=== PATIENT | male | born 1995 | race Caucasian/White ===

== ENCOUNTER 2020-07-16 13:30 | Outpatient (RCR) | payer OTHER, SELFPAY ==
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
--- NOTE | 2020-07-05 16:31 | PTOPEVAL ---
PHYSICAL THERAPY RE-EVALUATION and UPDATED PLAN OF CARE Thank you for referring George Garay Jr. to [facility] [place].? Prosper has made progress towards goals set, but has not fully met all of the goals. It is recommended that he continue to be seen for physical therapy? 2x/week for 4 weeks. Please review, sign, date and return this plan of care KATINA. I agree with and certify that the following plan of care is medically necessary. Referring Physician Date Admitting Provider: Attending Provider: Michelle Dave MD Referring Provider: Therapy Assessment Status Assessment Status Assessment Status Re-evaluation Evaluation Information Problem Diagnosis closed nondisplaced fx of 3rd, 4th metatarsal delay healing, Achilles tendon Subjective Information Prosper reports level ground and Query Text:As Reported By Patient/ stairs are going okay for him. Family Still having increase in discomfort with uneven ground and ladders are really difficult for him. Scar is feeling better - less pulling present with motion. Pain Assessment Self Report Pain Assessment Left Foot/Feet Reported Pain Level 3 Pain Description Aching,Dull Lowest Pain Intensity 2 Greatest Pain Intensity 5 Lower Extremity Range of Motion Ankle/Foot Range of Motion Left Ankle Dorsiflexion With Knee Extension 6 Range of Motion - Active Ankle Dorsiflexion With Knee Flexed 15 Range of Motion - Active Lower Extremity Muscle Strength Testing Ankle Strength Left Ankle Plantarflexion Strength 4 Good Ankle Strength Comments anterior tibialis 5 posterior tibialis 5 peroneal brevis 5 peroneal longus 5 Single leg stance - 60+ sec - very little ankle motion - with eyes closed - 40 seconds - symmetrical movement between legs to maintain balance mid calf circumference - 39.8 cm Palpation Assessment Palpation Palpation improved scar mobility in area of arch medially - but still reduced motion centrally. Gait Assessment Gait Pattern Assessment Other Gait Observations increased control with L foot at heel strike to mid stance - decreased to no foot slap present Stair Climbing Assessment Stair Climbing Assessment Stair Climbing Assistive Devices None Number
--- NOTE | 2020-07-12 14:53 | PCPTNOTE ---
Father called 15 minutes after patients scheduled appointment to say patient was on the road and would not be able to make it to appointment this date.
--- NOTE | 2020-07-16 14:38 | PCPTNOTE ---
Prosper needs to cancel appointments / and 07/23 due to being out of town.
--- NOTE | 2020-07-26 14:16 | PCPTNOTE ---
Patient did not show up for scheduled appointment this date. Message left regarding next appointment 07/30/20 at 13:30.
--- NOTE | 2020-07-30 13:52 | PCPTNOTE ---
Patient called & cancelled scheduled appointment this date due to having to work.
--- NOTE | 2020-08-02 14:11 | PCPTNOTE ---
PHYSICAL THERAPY DISCHARGE SUMMARY Admitting Provider: Attending Provider: Michelle Dave MD Patient:George Garay Jr. Date of :1995 Prosper has not returned for any further treatments since 07/16/2020, therefore he will be discharged at this time. Patient?s initial visit was on 05/19/2020 10:00 and he had a total of 10 visits. Prosper has only returned for 1 visit since his re-evaluation on 07/05/2020. He has cancelled 4 visits and did not show for 2 visits. The goals have mostly been met. Thank you for referring Prosper to [facility]. Please review, sign, date and return this discharge summary KATINA. I have been updated about Prosper's current status and I agree with discharge from the above service at this time. Referring Physician Date
--- NOTE | 2020-08-02 14:24 | PCPTNOTE ---
Patient was called and no answer. Left a voicemail stating we are discharging patient at this time due to 4th no show.
== END 2020-08-11 14:17 | disposition home or self-care (01) ==
LOC: ANHHIPT 13:30
DX: S92.335D Nondisplaced fracture of third metatarsal bone, left foot, subsequent encounter for fracture with routine healing (principal); S92.345G Nondisplaced fracture of fourth metatarsal bone, left foot, subsequent encounter for fracture with delayed healing; M67.02 Short Achilles tendon (acquired), left ankle
CPT/HCPCS: 97110; 97140; 97161